=== PATIENT | female | born 1990 | race Caucasian/White ===

== ENCOUNTER 2023-06-12 11:12 | Emergency (ER) | payer OTHER, SELFPAY ==
[2023-06-12 11:34] VITALS: BP 124/88
[2023-06-12 12:18] VITALS: BMI 35.8
[2023-06-12 12:34] LABS: % Basophils 0.5 % (0-2); % Eosinophils 1.8 % (0-6); % Immature Granulocytes 0.4 % (0-0.5); % Lymphocytes 29.4 % (20.5-51.1); % Monocytes 6.4 % (1.7-9.3); % Neutrophils 61.5 % (42.2-75.2); Absolute Eosinophils 0.1 10^3/uL (0-0.7); Absolute Lymphocytes 1.7 10^3/uL (1.2-3.4); Absolute Monocytes 0.4 10^3/uL (0.1-0.6); Absolute Neutrophils 3.5 10^3/uL (1.4-6.5); Hematocrit 36.7 % (37.0-47.0); Hemoglobin 12.1 g/dL (12.0-16.0); Mean Corpuscular Hgb 27.5 pg (27.0-31.0); Mean Corpuscular Volume 83.4 fL (81.0-99.0); Mean Platelet Volume 8.9 fL (7.4-10.4); Nucleated Red Blood Cells % 0 %; Platelet Count 278 10^3/uL (130-400); Red Cell Dist. Width 14.1 % (11.5-14.5); White Blood Cell Count 5.6 10^3/uL (4.8-10.8)
--- NOTE | 2023-06-12 12:40 | ED.GENMED ---
History of Present Illness
General
Chief Complaint: Abdominal Pain
Source: patient
Exam Limitations: none
Time Seen by Provider: 06/12/23 12:05
Nursing documentation reviewed up to this point in time: agreed with
Travel History
Have you had any contact with someone who has COVID-19?: No
Do you have any symptoms of coronavirus? Fever > 100 degrees, chills, cough, shortness of breath, sore throat, loss of taste or smell, muscle aches, or headache?: No
History of Present Illness
History of Present Illness:
This is a 32-year-old female with past medical history of delivery presenting to emergency department today with right lower quadrant abdominal pain. She had a for her first child 5 weeks ago and started having pain 2 weeks
later. She initially saw her [employer] who suspected a muscle strain or tear and wanted to refer her for PT. She states that over the past few weeks, the pain has been getting worse and is particularly severe when she has to walk around, or hold her
child. She denies nausea, vomiting, fevers or chills, changes or discharge, bleeding, dizziness, lightheadedness, constipation, diarrhea. She is able to eat and drink without difficulty.
She has had no other surgeries other than liposuction. She had to get the because she was not progressing labor. She denies dysuria, hematuria. She states that she has had no drainage or pain at her incision site. She says the pain
radiates into her pelvis.
Past History
Past History
ED Past Medical History: None
Social History
Tobacco: Non-smoker
Review of Systems
Review of Systems
All Other Systems: ROS reviewed and negative except as documented in HPI and ROS
Phy Exam
Physical Exam
Physical Exam:
General: Patient is well-appearing in no acute distress
Skin: Warm and dry, no rashes or lesions
Cardiac: Rate and rhythm, no murmur
Pulm: normal respiratory effort, no wheezes, rales, or rhonchi
Abdomen: Moderate abdominal tenderness in the right lower quadrant. Abdomen is nondistended. There is a horizontal suprapubic scar which is intact, nonerythematous, no warmth or drainage. Normoactive bowel sounds x4.
Course
Orders/Labs/Results
Orders:
Orders
06/12/23 11:50
Urinalysis Reflex To Culture Urgent
Date Specimen was Collected: 06/12/23
Time Specimen was Collected: 11:40
06/12/23 12:26
Complete Blood Count/With Diff Urgent
Comprehensive Metabolic Panel Urgent
06/12/23 12:36
CT Abd/pelvis W Iv Cont Urgent
Comment:
Reason For Exam: rlq pain, 5 weeks s/p c section
Abnormal Lab Results
06/12/23
12:26
Hct 36.7 L %
(37.0-47.0)
Alkaline Phosphatase 128 H U/L
(38-126)
06/12/23 12:26
06/12/23 12:26
Vital Signs
Initial and Last Documented VS:
Initial Vital Signs
Temp Pulse Resp BP Pulse Ox
97.4 F 77 16 124/88 98
06/12/23 11:34 06/12/23 11:34 06/12/23 11:34 06/12/23 11:34 06/12/23 11:34
Last Documented Vital Signs
Temp Pulse Resp BP Pulse Ox
97.4 F 66 16 126/81 98
06/12/23 11:34 06/12/23 15:05 06/12/23 11:34 06/12/23 15:05 06/12/23 11:34
MDM/Problems Addressed
Differential Diagnosis Includes:
Differentials include surgical hernia, bowel obstruction, endometritis, hematoma, seroma, intra-abdominal abscess
MDM/Problems Addressed:
abdominal pain
Chronic conditions affecting care:
n/a
Acute Exacerbation and/or Progression of Chronic Illness:
n/a
*Pulse Oximetry
Patient hypoxic: no
*Critical Care Note
Total Time (30-74mins, 75-104mins- exclusive of procedures): Not Applicable
Data Reviewed
Review of Other/Old Records Reveals: Records (Reviewed previous records, patient did deliver at [facility], no complications from delivery) and Operative Reports (Reviewed operative report, patient had primary low-transverse
section)
Prescriptions/Medications Considered But Not Given:
n/a
Further Testing Considered But Not Given:
n/a
Patient Management
Escalation/DeEscalation of care consider admission/obs:
This is 29-year-old female with a past medical history of section 5 weeks ago presenting with right lower quadrant pain has been increasing in severity over the past 5 weeks. On exam, she does have moderate tenderness palpation right lower
quadrant and the transverse incision site is intact with no warmth, erythema, or drainage. Her CBC and CMP are unremarkable. Her CT of the abdomen showed no acute abnormalities. Patient does have a scheduled follow-up with her OB on June 23
for the symptoms. Patient is stable for discharge.
Update Note
Update Note:
12:45 pm-- Initially evaluated patient, will obtain CBC, CMP, CT ab/pelvis with IV contrast
ED Attending Note
-
Portions of this chart may have been created with voice recognition software.� Occasional wrong word or��sound alike� substitutions may have occurred due to the inherent limitations of voice recognition software.
Discharge Plan
Departure
Patient Disposition: Home (Routine Discharge)
Date of Disposition: 06/12/23
Time of Disposition: 14:46
Patient with high blood pressure during this ER visit?: Yes
Condition: Good
Discharge Problem:
Abdominal pain
Instructions: Abdominal Pain
Prescriptions:
No Action
1 tab PO DAILY
ferrous sulfate [FeroSul] 325 mg (65 mg iron) Tablet
325 mg PO DAILY Qty: 0 0RF
sennosides-docusate sodium [Stool Softener-Stimulant Laxat] 8.6-50 mg Tablet
1 tab PO DAILYPRN PRN (Reason: constipation) Qty: 0 0RF
oxycodone-acetaminophen 5-325 mg Tablet
1 tab PO Q4HPRN PRN (Reason: moderate pain) Qty: 10 0RF
ibuprofen 600 mg Tablet
600 mg PO Q6HPRN PRN (Reason: cramps) Qty: 0 0RF
simethicone 80 mg Tablet,Chewable
80 mg PO TIDPRN PRN (Reason: flatulence) Qty: 0 0RF
Referrals:
Geno Zhang CRNP [Family Provider] -
Activity Restrictions/Additional Instructions:
Your CT scan of your abdomen and pelvis did not show any acute abnormality.
I would encourage you to walk and stay active as tolerated.
Please follow up with your OBGYN as soon as possible.
Interventions
Interventions:
*Risk Screen - Suicide Last Done: 06/12/23 12:16
*General Assessment Last Done: 06/12/23 12:16
*Neglect/Abuse Screening Last Done: 06/12/23 12:16
ED- Fall Risk Assessment Last Done: 06/12/23 13:49
*ED COVID-19 Vaccine History Last Done: 06/12/23 11:34
*Nursing Disposition Last Done: 06/12/23 15:05
YI-Ltumvq-Igcvdfawaj Assessment Last Done: 06/12/23 12:16
Discharge Date and Time
Discharge Date/Time: 06/12/23 15:06
[2023-06-12 12:44] LABS: Urine Albumin Negative (Neg - Trace); Urine Bilirubin Negative (Negative); Urine Character Clear (Clear); Urine Color Yellow; Urine Glucose Negative (Negative); Urine Ketone Negative (Negative); Urine Leukocyte Negative (Negative); Urine Nitrite Negative (Negative); Urine Occult Blood Negative (Negative); Urine Specific Gravity 1.015 (<1.030); Urine Urobilinogen Negative (Neg - 1+)
[2023-06-12 12:57] LABS: ALT (SGPT) 27 U/L (0-35); AST (SGOT) 24 U/L (14-36); Albumin 4.3 g/dl (3.5-5.0); Alkaline Phosphatase 128 U/L (38-126); Blood Urea Nitrogen 15 mg/dl (7-17); Calcium 9.3 mg/dl (8.4-10.2); Carbon Dioxide 26 mmol/L (22-30); Chloride 107 mmol/L (98-107); Estimated Creatinine Clearance > 125 ml/min; Glucose 96 mg/dl (70-99); Potassium 4.2 mmol/L (3.5-5.1); Sodium 139 mmol/L (135-145); Total Bilirubin 0.5 mg/dl (0.2-1.3); eGFR > 60.00
[2023-06-12 14:54] VITALS: BP 126/81
[2023-06-12 15:05] VITALS: BP 126/81
== END 2023-06-12 15:06 | disposition home or self-care (01) ==
LOC: EMR 11:12
PROVIDERS: EMERGENCY PHYSICIAN Emergency Medicine; FAMILY PHYSICIAN Nurse Practitioner Adult Health
DX: R10.31 Right lower quadrant pain (principal); R03.0 Elevated blood-pressure reading, without diagnosis of hypertension
CPT/HCPCS: 99285; 74177; 80053; 81003; 85025; Q9967

== ENCOUNTER → 2023-06-19 14:00 | Outpatient (REF) | payer OTHER, SELFPAY | LOC: RAD 14:00 | PROVIDERS: ATTENDING PHYSICIAN Obstetrics & Gynecology | DX: R10.30 Lower abdominal pain, unspecified (principal) | CPT/HCPCS: 76705 ==

== ENCOUNTER → 2024-06-29 15:15 | Outpatient (REF) | payer OTHER, SELFPAY | LOC: HWRAD 15:15 | PROVIDERS: ATTENDING PHYSICIAN Nurse Practitioner Adult Health | DX: M54.41 Lumbago with sciatica, right side (principal); M54.2 Cervicalgia | CPT/HCPCS: 72040; 72110 ==